=== PATIENT | female | born 1980 | race Caucasian/White ===

== ENCOUNTER 2021-01-28 09:14 | Emergency (ER) | payer OTHER ==
[~2021-01-28] VITALS: Ht 170.2 cm; Wt 63.5 kg
--- NOTE | 2021-01-28 09:20 | NUR ---
PATIENT IN FOR C/O R INDEX FINGER PAIN AND SWELLING, TRIED TO DRAIN IT USING A NEEDLE. PATIENT ALERT AND ORIENTED X4 RESPIRATIONS EVEN AND UNLABORED. O DISTRESS NOTED. R INDEX FINGER WARM TO TOUCH. WILL CONTINUE TO MONITOR
--- NOTE | 2021-01-28 09:33 | NUR ---
RADIOLOGY AT BEDSIDE
[2021-01-28] MEDS ORDERED: LIDOCAINE 2% 20 ML MDV ONE (09:35)
--- NOTE | 2021-01-28 09:48 | NUR ---
DR EDWARDS AT THE BEDSIDE FOR I AND D
[2021-01-28] MEDS ORDERED: LIDOCAINE 2% 20 ML MDV TP ONE (10:00)
[2021-01-28] MEDS ORDERED: SULFAMETH/TRIMETH 800/160 MG 1 UDTAB TABLET ONE (10:20)
[2021-01-28] MEDS ORDERED: CEPHALEXIN MONOHYDRATE 500 MG CAPSULE PO ONE ×2 (10:20→10:30)
[2021-01-28] MEDS ORDERED: SULFAMETH/TRIMETH 800/160 MG 1 UDTAB TABLET PO ONE (10:30)
[2021-01-28] MEDS ORDERED: CEPH500C2 PO (10:34)
[2021-01-28] MEDS ORDERED: SULF1TAB48 PO (10:34)
--- NOTE | 2021-01-28 10:46 | NUR ---
Patient discharged to home in stable condition. Written and verbal after care instructions given. Patient verbalizes understanding of instruction.
[2021-01-28 10:47] VITALS: BP 119/75
== END 2021-01-28 10:47 | disposition home or self-care (01) ==
LOC: ER 09:20
DX: L02.511 Cutaneous abscess of right hand (principal); L08.89 Other specified local infections of the skin and subcutaneous tissue; Z79.899 Other long term (current) drug therapy
CPT/HCPCS: 26010; 73140; 99284; A6403; J3490